=== PATIENT | male | born 1965 | race Caucasian/White ===

== ENCOUNTER → 2017-03-27 | Outpatient (CLI) | payer SELFPAY ==
--- NOTE | 2017-03-27 15:30 | CT ---
CT Calcium Score Clinical information: 51-year-old male for coronary artery disease risk assessment. Comparison: None. ECG Gating: Prospective Scan range: Pulmonary artery bifurcation to diaphragm. Findings: Examination quality: Good. Limitation: None. Total calcium score: 142 Total volume score: 127 mm3 Percentile: 75-90 % Artery scores Left main coronary artery: 0 Left anterior descending artery: 98 Left circumflex artery: 37 Right coronary artery: 7 Other findings: Cardiac chambers: Unremarkable. Cardiac valves: Unremarkable. Thoracic aorta: Unremarkable. Lungs: Unremarkable. Upper abdomen: Unremarkable. Impression: Total calcium score of 142 8: Size with definite moderate atherosclerotic plaque with mild coronary a rtery disease and moderate risk of future cardiovascular event. Reported By:
== END ==
LOC: RAD 13:56
PROVIDERS: ATTEND Family Medicine
DX: Z13.6 Encounter for screening for cardiovascular disorders (principal)